=== PATIENT | female | born 1970 | race Two or more races ===

== ENCOUNTER → 2020-06-08 | Outpatient (CLI) | payer OTHER | END | disposition home or self-care (01) | LOC: OFIC 805 08:45 | PROVIDERS: ATTEND Otolaryngology | DX: G44.009 Cluster headache syndrome, unspecified, not intractable (principal); R09.81 Nasal congestion; G50.1 Atypical facial pain; J34.2 Deviated nasal septum; J34.3 Hypertrophy of nasal turbinates; J35.2 Hypertrophy of adenoids ==

== ENCOUNTER → 2020-07-18 | Outpatient (CLI) | payer OTHER | END | disposition home or self-care (01) | LOC: OFIC 805 07-07 09:00 | PROVIDERS: ATTEND Otolaryngology | DX: J34.3 Hypertrophy of nasal turbinates (principal); J35.2 Hypertrophy of adenoids; J34.2 Deviated nasal septum; G50.1 Atypical facial pain; R09.81 Nasal congestion; J32.8 Other chronic sinusitis ==